=== PATIENT | female | born 1980 | race Caucasian/White ===

== ENCOUNTER 2020-03-29 09:18 | Emergency (ER) | payer SELFPAY ==
--- NOTE | 2020-03-29 10:55 | RADIOLOGY REPORT (SQ) ---
EXAM DESCRIPTION: CHEST SINGLE VIEW IMAGES COMPLETED DATE/TIME: 03/29/2020 10:40 am REASON FOR STUDY: chest pain, cough COMPARISON: PA and lateral views of the chest from 01/29/2013. EXAM PARAMETERS: NUMBER OF VIEWS: One view. TECHNIQUE: An AP view of the chest was obtained. RADIATION DOSE: NA LIMITATIONS: None. FINDINGS: LUNGS AND PLEURA: No consolidation, pleural effusion or pneumothorax. MEDIASTINUM AND HILAR STRUCTURES: No mediastinal or hilar contour abnormality. HEART AND VASCULAR STRUCTURES: The cardiac silhouette and pulmonary vasculature are within normal liang its. BONES: No acute findings. HARDWARE: None in the chest. OTHER: No other finding. IMPRESSION: No acute cardiopulmonary process. TECHNICAL DOCUMENTATION: JOB ID: [id number] 2010 [employer]- All Rights Reserved Reading location - IP/workstation name: [email or web address]
--- NOTE | 2020-03-29 11:17 | ER Document Report ---
ED Respiratory Problem - General Chief Complaint: Cough Stated Complaint: FEVER Time Seen by Provider: 03/29/20 10:08 Primary Care Provider: DWAYNE MIRZA MD [Primary Care Provider] - Follow up as needed Notes: HPI: Patient is a 39-year-old female who presents with the onset around 2 to 3 days of some runny nose, congestion, and cough. No vomiting or diarrhea. No chest or abdominal pain, no calf pain or leg swelling. No pain with urination. Patient does have a history of asthma. ROS: See HPI All other review of systems reviewed and otherwise negative Reviewed vital signs and nursing note as charted by RN. PHYSICAL EXAM: CONSTITUTIONAL: Alert and oriented and responds appropriately to questions. Well-appearing; well-nourished HEAD: Normocephalic; atraumatic EYES: PERRL; Conjunctivae clear, sclerae non-icteric ENT: Normal nose; no rhinorrhea; moist mucous membranes; pharynx without lesions noted NECK: Supple without meningismus; non-tender; no cervical lymphadenopathy, no masses CARD: Regular rate and rhythm; no murmurs; symmetric distal pulses RESP: Normal chest excursion without splinting or tachypnea; breath sounds clear and equal bilaterally; no wheezing or rhonchi on auscultation ABD/GI: Normal bowel sounds; non-distended; soft, non-tender BACK: The back appears normal and is non-tender to palpation EXT: Normal ROM in all joints; non-tender to palpation; no edema SKIN: No acute lesions noted NEURO: CN 2-12 intact; 5/5 bilateral upper and lower extremity strength with sensation intact to light touch PSYCH: The patient's mood and manner are appropriate. Grooming and personal hygiene are appropriate. TRAVEL OUTSIDE OF THE [place] IN LAST 30 DAYS: No - Related Data Allergies/Adverse Reactions: Penicillins Allergy (Severe, Verified 04/09/14 12:56) RASH Past Medical History - Social History Smoking Status: Never Smoker Chew tobacco use (# tins/day): No Frequency of alcohol use: Social Drug Abuse: None Family History: Reviewed & Not Pertinent Pulmonary Medical History: Reports: Hx Asthma, Hx Bronchitis Past Surgical History: Reports: Hx Appendectomy, Hx Cardiac Surgery - ASD repaired at 4 yrs old, Hx Section - x4, Hx Cholecystectomy, Hx Orthopedic Surgery, Hx Tubal Ligation - Immunizations Hx Diphtheria, Pertussis, Tetanus Vaccination: Yes - 2008 Physical Exam - Vital signs Vitals: Temp Pulse Resp BP Pulse Ox 98.6 F 96 16 132/77 H 98 03/29/20 09:33 03/29/20 09:33 12 09:33 03/29/20 09:33 03/29/20 09:33 Course - Re-evaluation Re-evalutation: 03/29/20 11:17 Given the history and physical examination in this extremely well-appearing patient in no acute distress, we will obtain an x-ray of the chest as well as tested coronavirus panel. If the x-ray is unremarkable, we will discharge the patient home with strict return precautions and work restrictions until the coronavirus test results. - Vital Signs Vital signs: Temp Pulse Resp BP Pulse Ox 98.6 F 96 16 132/77 H 98 03/29/20 09:33 03/29/20 09:33 03/29/20 09:33 03/29/20 09:33 03/29/20 09:33 Discharge - Discharge Clinical Impression: Cough, Fever in adult Disposition: HOME, SELF-CARE Additional Instructions: Come back immediately for any worsening shortness of breath, cough, chest pain, leg swelling, or any other acute problems. Please make sure that you follow-up with the primary care physician as we have discussed. Please make sure that you quarantine yourself until results have returned. Patient should not return to work until her Covid test returns negative. Forms: Return to Work Referrals: DWAYNE MIRZA MD [Primary Care Provider] - Follow up as needed
[2020-03-29 11:34] VITALS: BP 131/70
== END 2020-03-29 11:34 | disposition home or self-care (01) ==
LOC: ER 09:18
DX: U07.1 COVID-19 (principal); R09.89 Other specified symptoms and signs involving the circulatory and respiratory systems; R05 Cough; R50.9 Fever, unspecified; J45.909 Unspecified asthma, uncomplicated; Z88.0 Allergy status to penicillin
CPT/HCPCS: 99284; 87635; 71045; C9803